=== PATIENT | male | born 1970 | race African-American/Black ===

== ENCOUNTER 2020-05-30 08:59 | Outpatient (CLI) | payer OTHER, SELFPAY ==
--- NOTE | 2020-05-30 09:14 | ECG_ITS ---
Measurements Intervals [place] Rate: 58 P: 45 OH: 117 QRS: 26 QRSD: 82 T: 194 QT: 431 QTc: 424 Interpretive Statements SINUS BRADYCARDIA WITH SHORT OH INTERVAL LEFT VENTRICULAR HYPERTROPHY AND ST-T CHANGE T WAVE ABNORMALITY IN ANTEROLATERAL LEADS- CONSIDER ISCHEMIA BASELINE ARTIFACT- I, II, III, AVR, AVL ABNORMAL ECG Electronically Signed On 05-30-2020 15:02:39 CHARTING CLERK by Zaire West D.O.
== END 2020-05-30 09:00 | disposition home or self-care (01) ==
LOC: ANHIMG 09:09 → ANHCARD 09:14
PROVIDERS: PCP Anesthesiology; Visit Provider Anesthesiology
DX: I10 Essential (primary) hypertension (principal); R94.31 Abnormal electrocardiogram [ECG] [EKG]
CPT/HCPCS: 93005

== ENCOUNTER → 2020-06-03 02:45 | Outpatient (CLI) | payer OTHER, SELFPAY ==
[2020-06-03 17:20] LABS: SARS-CoV-2 RNA PCR Negative
== END ==
PROVIDERS: PCP Anesthesiology; Visit Provider Otolaryngology
DX: Z01.812 Encounter for preprocedural laboratory examination (principal); Z20.822 Contact with and (suspected) exposure to COVID-19
CPT/HCPCS: C9803; U0003; U0005

== ENCOUNTER 2020-06-05 00:45 | Day surgery (SDC) | payer OTHER, SELFPAY ==
[2020-05-25 17:27] VITALS: BMI 35.0
--- NOTE | 2020-05-28 15:40 | PC.NURSE ---
Patient stated, there is no changes since last interview was done.
--- NOTE | 2020-06-02 10:41 | PM.IMHP ---
H&P: HPI History of Present Illness Date/Time: 06/02/20 10:41 Chief Complaint: Retained myringotomy tubes, eustachian tube dysfunction Narrative: Brian Chamberlain is a 49 year old male with a long history of eustachian tube dysfunction who has done very well with ear tubes. He presents for tube removal and replacement. Reports no new symptoms or changes in his medical history. Review of Systems Constitutional: Constitutional: Denies fatigue, Denies fever(s) and Denies lethargy Eyes: Eyes: Denies blurry vision and Denies change in vision ENT: Reports as per HPI Cardiovascular: Cardiovascular: Denies chest pain Respiratory: Respiratory: Denies cough Endocrine: Endocrine: Denies fatigue Hematologic/Lymphatic: Hematologic/Lymphatic: Denies easy bleeding, Denies easy bruising and Denies lymphadenopathy Allergic/Immunologic: Allergic/Immunologic: Denies seasonal rhinorrhea [facility] Social History Social History (Updated 12/10/19 @ 09:15 by Lolly Herrera MA) Smoking status: Never smoker Alcohol intake: never Substance use: never Gender identity (if verbalized by the patient): Male Spiritual care concerns: No Meds Home Medications and Allergies Home Medications Medication Instructions Recorded Confirmed Type azelastine 137 mcg (0.1 %) nasal 1 spray INTRANASAL Q12H #30 ml 04/21/20 05/25/20 Rx spray aerosol olmesartan 20 mg PO DAILY 05/25/20 05/25/20 History rosuvastatin 20 mg PO DAILY 05/25/20 05/25/20 History Allergies Allergy/AdvReac Type Severity Reaction Status Date / Time No Known Allergies Allergy Unverified 04/21/20 16:22 Exam Const: General: cooperative, healthy appearing, comfortable, well developed and alert HENMT: Head: normal to inspection, normocephalic and atraumatic Ears: hearing grossly normal bilaterally, external ears normal, TM's abnormal bilaterally ( Tubes present bilaterally) and EAC's normal General nose exam: Normal external nose present, Normal nares present, No nasal polyps present, Normal nasal mucous membranes and turbinates present and Normal septum present Face and sinus: normal facial exam Mouth: Yes Normal oral and palatal mucosa present, Yes lip normal, Yes tongue normal, Yes oropharynx normal and Yes moist mucous membranes Teeth and gingiva: dentition normal and gingiva normal Throat: posterior oropharynx normal, tonsils normal and uvula midline Eyes: General: appearance normal, both eyes and all related structures Periorbital: periorbital findings normal Eyelids: eyelids normal Conjunctivae: conjunctivae normal Sclera: sclerae normal Neck: Neck: normal visual inspection, full ROM and no lymphadenopathy Thyroid: thyroid normal Lymphatic: no lymphadenopathy noted Resp: Effort & Inspection: normal respiratory effort and able to speak in complete sentences Cardio: Jugular venous distension: no JVD Neuro: Cranial nerves: Yes CN's II-XII intact bilaterally Assessment and Plan Assessment and plan (1) ETD (eustachian tube dysfunction): Code(s): H69.80 - Other specified disorders of Eustachian tube, unspecified ear Status: Acute Assessment and Plan: plan is for the OR for bilateral tube removal and replacement. The risks were discussed including damage to facial nerves loss of facial function damage to hearing loss if hearing and the need for further procedures. The patient voiced understanding and agreed. The risk of cholesteatoma was discussed as well. (2) Retained bilateral myringotomy tubes: Code(s): Z96.22 - Myringotomy tube(s) status Status: Acute
--- NOTE | 2020-06-05 07:00 | WPDHPUPDATE1 ---
History and Physical Update Update Date/Time: 06/05/20 07:00 History and Physical has been reviewed, including an updated exam of the patient. There are NO changes in the patient's condition. Risks, benefits, and alternatives have been discussed and questions answered. Patient agrees to proceed with procedure.
--- NOTE | 2020-06-05 12:28 | WPDANESEPPF ---
Anes - Initial Pre Proc Eval Procedure: Operation Date: 06/05/20 15:30 Proposed Procedures p Bilateral Tube Removal And Bilateral Tube Replacements - Judd Henson MD Date/Time: 06/05/20 12:28 Surgeon: Judd Henson MD Pre Op Diagnosis: Chronic Otitis Media Patient Data Age: 49 Gender: M Height: 1.8 m Weight: 114 kg Allergies Allergy/AdvReac Type Severity Reaction Status Date / Time No Known Allergies Allergy Unverified 04/21/20 16:22 Home Medications Medication Instructions Recorded Confirmed Type azelastine 137 mcg (0.1 %) nasal 1 spray INTRANASAL Q12H #30 ml 04/21/20 05/25/20 Rx spray aerosol olmesartan 20 mg PO DAILY 05/25/20 05/25/20 History rosuvastatin 20 mg PO DAILY 05/25/20 05/25/20 History Patient hx anesthesia problems: none Family hx anesthesia problems: none PMFSH Past Medical History Medical History (Updated 06/05/20 @ 12:29 by Gamaliel Salinas MD) Chronic GERD HTN (hypertension) Hyperlipidemia Obesity Social History Social History (Updated 12/10/19 @ 09:15 by Lolly Herrera MA) Smoking status: Never smoker Alcohol intake: never Substance use: never Living arrangements: alone Gender identity (if verbalized by the patient): Male Sexual Orientation (if Verbalized by the Patient): Straight or Heterosexual Spiritual care concerns: No Anes - Eval Final PreProcedure Day of Procedure 06/05/20 12:28 Patient weight: obese Heart: regular rate and rhythm Lungs: clear to auscultation and normal air movement Airway: Mallampati scale class II Neurological: alert and oriented Last oral intake: >/= 8 hours ASA classification: III Emergent: no Anesthetic plan: proceed Anesthesia type and monitoring: general GIVS and LMA Informed Consent: The patient's anesthetic plan and its attendant risks and benefits were discussed with the patient/family/POA. Questions were solicited and answers provided to the satisfaction of the patient/family/POA.
[2020-06-05 13:21] VITALS: BP 148/100; PULSE 66; RESP 18; TEMP 36.1; O2SAT 100
[2020-06-05] MEDS: LACTATED RINGERS 1,000 ML 30 ML IV CONT (13:35)
[2020-06-05] MEDS: CIPROFLOXACIN HCL 0.3% OP SOLN 2.5 ML BTL 4 DROP EACH EAR (15:07)
[2020-06-05 15:30] VITALS: BP 137/91; PULSE 100; RESP 16; O2SAT 95
--- NOTE | 2020-06-05 15:40 | P.OP_ITS ---
Procedure Note - Detailed Date of procedure: 06/05/20 Pre-op diagnosis: Chronic Otitis Media Retained myringotomy tubes Post-op diagnosis: same Procedure performed: Bilateral marialuisa microscopy Bilateral T-tube removal and replacement Description of procedure: The patient was correctly identified and consent was verified in the preoperative holding area. The patient was then brought to the operating room and a time-out was performed. General anesthesia was induced and an LMA was secured the patient's airway. The marialuisa microscope was brought to the field and the right EAC was visualized following placement of the speculum. Cerumen was removed with a curette. The T-tube was removed in approximately 15- 20% perforation was noted anteriorly. The perforation edges were rimmed and a T-tube was placed. Similar procedure was performed on the left side. The only significant difference in findings was that the perforation was the size of the tube on the left side. Care the patient was turned back over to anesthesiology and I performed all portions of this procedure. Anesthesia: GLMA Surgeon: Judd Henson MD Complications: No immediate complications Condition: stable Disposition: PACU Findings: Left-sided small perforations size of tube right-sided large perforation 15%
[2020-06-05 16:00] VITALS: BP 134/92; PULSE 78; RESP 18
[2020-06-05 16:30] VITALS: BP 153/87; PULSE 67; RESP 16
[2020-06-05] MEDS: oxyCODONE HCL (*CRX) 5 MG TAB IR PO (16:37)
== END 2020-06-05 16:44 | disposition home or self-care (01) ==
PROVIDERS: PCP Anesthesiology; Visit Provider Otolaryngology
PROC: (CPT 69436; principal; 2020-06-05 15:30)
DX: H66.93 Otitis media, unspecified, bilateral (principal); I10 Essential (primary) hypertension; E78.5 Hyperlipidemia, unspecified; K21.9 Gastro-esophageal reflux disease without esophagitis; E66.9 Obesity, unspecified; Z68.35 Body mass index [BMI] 35.0-35.9, adult
CPT/HCPCS: 69436; A9270; C9803; J2250; J3010; J7120; U0003; U0005

== ENCOUNTER 2021-02-16 01:05 | Day surgery (SDC) | payer OTHER, SELFPAY ==
[2021-02-09 09:29] VITALS: BMI 34.0
--- NOTE | 2021-02-09 09:40 | PC.NURSE ---
Report to the Outpatient Waiting Room, entrance under the green pavilion located off [facility], at time 0600 on date 02/16/21. OR Time: 0730. - You and your visitor will be asked a series of questions to screen for COVID 19 for your protection. - A mask is required within the hospital. - Only one visitor is allowed at this time. Patient visitors will be guided where to wait when not with patient. Preoperative COVID Testing Requirements: No COVID Test needed if: (proof is required; if not received patient will have Rapid Test prior to entry) - Patient has received COVID Vaccine at least 14 days prior to procedure date or - Patient has positive COVID test result within last 90 days of surgery date. COVID Test needed if above criteria is not met If not COVID vaccinated a COVID test must be conducted within 72 hours of surgery and patient is asked to isolate self from time of testing until procedure. You will go to the [facility] for your COVID testing. The [facility] is located at the corner of [address] [facility]. You will only be called if COVID results are positive and your surgeon may reschedule your elective surgery date. Patients may have clear liquids (water, carbonated beverages, clear teas, apple juice) until 3 hours prior to surgery with a maximum of 20 ounces. - No food from midnight until time of surgery - Infants may have breast milk until 4 hours before surgery, infant formula 6 hours prior to surgery. - Children will be allowed to drink immediately following surgery. If applicable, please bring a bottle or sippy cup to assist with drinking. Juice, water, soda, and popsicles are readily available. For infants on formula, please bring formula the day of surgery. Pacifiers are allowed. Take the following medications with a SIP of water the morning of surgery: N/A Medications to discontinue per physician: N/A Date to take last dose: N/A Please no make-up, nail setswana, hairspray, perfume, deodorant, or body powder the day of surgery. No jewelry (including any body piercings) or valuables the day of surgery, leave them at home. Please take a shower or bath the night before, or the morning of, surgery with an antibacterial soap. Wear comfortable, loose fitting clothing. Children are encouraged to wear pajamas. - Jewelry must be removed prior to entering the operating room. Rings and piercings that are not removed may be cut off. - The hospital will not accept responsibility for valuables. - Please leave all valuables, including medications, at home the day of surgery. If you are going home after surgery, a licensed shuttle truck driver must drive you home. - NO public transportation without another adult. - We recommend that an adult stay with you for 24 hours following discharge. - We also recommend that you do not drive, make important decision, drink alcoholic beverages, or take any drugs that were not prescribed by your health care provider for at least 24 hours after your discharge time. For Pediatric surgeries, we recommend two adults accompany the child home (only one inside the building at this time). Follow any additional instructions given to you from your surgeon. Telephone instructions given to KJ DUMONT and asked if any additional questions and then verbalized understanding. Patient advised to call surgeon office or pre surgery nurse liaison [phone] if any additional questions.
--- NOTE | 2021-02-15 07:48 | PM.IMHP ---
H&P: HPI History of Present Illness Date/Time: 02/15/21 07:48 Chief Complaint: Bilateral eustachian tube dysfunction, left retained myringotomy tube, right TM perforation Narrative: patient presents for planned surgical procedure left T-tube replacement. No changes in symptoms no change in medical history. Review of Systems Constitutional: Constitutional: Denies fatigue, Denies fever(s) and Denies lethargy Eyes: Eyes: Denies blurry vision and Denies change in vision ENT: Reports as per HPI Cardiovascular: Cardiovascular: Denies chest pain Respiratory: Respiratory: Denies cough Endocrine: Endocrine: Denies fatigue Hematologic/Lymphatic: Hematologic/Lymphatic: Denies easy bleeding, Denies easy bruising and Denies lymphadenopathy Allergic/Immunologic: Allergic/Immunologic: Denies seasonal rhinorrhea [facility] Past Medical History Medical History Chronic GERD HTN (hypertension) Hyperlipidemia Obesity Family History Family History Father Hypertension Heart disease Cancer Social History Social History Smoking status: Never smoker Alcohol intake: never Substance use: never Substance use type: does not use Living arrangements: alone Gender identity (if verbalized by the patient): Male Sexual Orientation (if Verbalized by the Patient): Straight or Heterosexual Spiritual care concerns: No Meds Home Medications and Allergies Home Medications Medication Instructions Recorded Confirmed Type famotidine 20 mg PO HS 02/09/21 02/09/21 History Allergies Allergy/AdvReac Type Severity Reaction Status Date / Time No Known Allergies Allergy Verified 02/09/21 09:28 Exam Const: General: cooperative, healthy appearing, comfortable, well developed and alert HENMT: Head: normal to inspection, normocephalic and atraumatic Ears: hearing grossly normal bilaterally, external ears normal, TM's abnormal bilaterally ( Left retained T-tube right perforation) and EAC's normal General nose exam: Normal external nose present, Normal nares present, No nasal polyps present, Normal nasal mucous membranes and turbinates present and Normal septum present Face and sinus: normal facial exam Mouth: Yes Normal oral and palatal mucosa present, Yes lip normal, Yes tongue normal, Yes oropharynx normal and Yes moist mucous membranes Teeth and gingiva: dentition normal and gingiva normal Throat: posterior oropharynx normal, tonsils normal and uvula midline Eyes: General: appearance normal, both eyes and all related structures Periorbital: periorbital findings normal Eyelids: eyelids normal Conjunctivae: conjunctivae normal Sclera: sclerae normal Neck: Neck: normal visual inspection, full ROM and no lymphadenopathy Thyroid: thyroid normal Lymphatic: no lymphadenopathy noted Resp: Effort & Inspection: normal respiratory effort and able to speak in complete sentences Cardio: Jugular venous distension: no JVD Neuro: Cranial nerves: Yes CN's II-XII intact bilaterally Assessment and Plan Assessment and plan (1) Unspecified perforation of tympanic membrane, right ear: Code(s): H72.91 - Unspecified perforation of tympanic membrane, right ear Status: Acute Assessment and Plan: plan is for the operating room for left T-tube removal and replacement. Total operative time 5 minutes. Risks were discussed including facial nerve damage facial paralysis deafness change in hearing need for further procedures. Patient voiced understanding of all of the aforementioned risks and agreed. (2) Retained myringotomy tube in left ear: Code(s): Z96.22 - Myringotomy tube(s) status Status: Acute
[2021-02-16] VITALS (7 sets, daily range): BP systolic 118–146; BP diastolic 77–95; PULSE 60–74; RESP 16–20; TEMP 36.1–36.2; O2SAT 96–100
[2021-02-16] MEDS: LACTATED RINGERS 1,000 ML 30 ML IV CONT (06:50)
--- NOTE | 2021-02-16 07:06 | WPDHPUPDATE1 ---
History and Physical Update Update Date/Time: 02/16/21 07:06 History and Physical has been reviewed, including an updated exam of the patient. There are NO changes in the patient's condition. Risks, benefits, and alternatives have been discussed and questions answered. Patient agrees to proceed with procedure.
--- NOTE | 2021-02-16 07:10 | WPDANESEPPF ---
Anes - Initial Pre Proc Eval Procedure: Operation Date: 02/16/21 07:30 Proposed Procedures p Left Myringotomy with T-Tube Insertion - Judd Henson MD Date/Time: 02/16/21 07:10 Surgeon: Judd Henson MD Pre Op Diagnosis: Left Eustahian Tube Dysfunction Patient Data Age: 50 Gender: M Height: 1.83 m Weight: 114 kg Allergies Allergy/AdvReac Type Severity Reaction Status Date / Time No Known Allergies Allergy Verified 02/16/21 06:21 Home Medications Medication Instructions Recorded Confirmed Type famotidine 20 mg PO HS 02/09/21 02/16/21 History Patient hx anesthesia problems: none Family hx anesthesia problems: none Results Review: All pre-operative results and documents have been reviewed as part of the pre-operative evaluation. [facility] Past Medical History Medical History Chronic GERD HTN (hypertension) Hyperlipidemia Obesity Family History Family History Father Hypertension Heart disease Cancer Social History Social History Smoking status: Never smoker Alcohol intake: never Substance use: never Substance use type: does not use Living arrangements: alone Gender identity (if verbalized by the patient): Male Sexual Orientation (if Verbalized by the Patient): Straight or Heterosexual Spiritual care concerns: No Anes - Eval Final PreProcedure Day of Procedure 02/16/21 07:10 Patient weight: obese Heart: regular rate and rhythm Lungs: clear to auscultation Airway: Mallampati scale class II Neurological: alert and oriented Last oral intake: >/= 8 hours ASA classification: III Emergent: no Anesthetic plan: proceed Anesthesia type and monitoring: general GIVS and standard monitoring Results Review: All pre-operative results and documents have been reviewed as part of the pre-operative evaluation. Informed Consent: The patient's anesthetic plan and its attendant risks and benefits were discussed with the patient/family/POA. Questions were solicited and answers provided to the satisfaction of the patient/family/POA.
[2021-02-16] MEDS: FAMOTIDINE 20 MG/2 ML VIAL IV PUSH (07:15)
[2021-02-16] MEDS: CIPROFLOXACIN HCL 0.3% OP SOLN 2.5 ML BTL 4 DROP EACH EAR (07:30)
--- NOTE | 2021-02-16 07:51 | P.OP_ITS ---
Procedure Note - Detailed Date of Procedure 02/16/21 Pre-op Diagnosis Left Eustahian Tube Dysfunction, left retained myringotomy tube Post-op Diagnosis same Procedure Performed Left myringotomy tube removal with new tube insertion Surgeon Judd Henson MD [employer] None Anesthesia general (LMA) Indications See above Findings Left tube in place blocked removed new tube placed no complications T-tube Description of Procedure Patient correctly identified consent verified in preop. Patient brought to OR. Time-out performed. Patient prepped and draped anesthesia induced LMA secured. Second time-out performed. Patient prepped and draped after induction. Haigler microscope brought in the operative field left EAC viewed speculum placed curette used to remove cerumen T-Tube in place blocked. T-tube removed with alligator forceps. New tube inserted. No bleeding. Blood loss 0 cc. Care patient turned back to Anesthesia. I performed all dictated portions of the procedure. No complications. Implants T-tube modified Estimated Blood Loss 0 Drains No Packing No Pathology none sent Complications No immediate complications Condition stable Disposition PACU
[2021-02-16] MEDS: oxyCODONE HCL (*CRX) 5 MG TAB IR PO (08:18)
== END 2021-02-16 08:55 | disposition home or self-care (01) ==
PROVIDERS: Visit Provider Otolaryngology
PROC: (CPT 69436; principal; 2021-02-16 07:30)
DX: T85.698A Other mechanical complication of other specified internal prosthetic devices, implants and grafts, initial encounter (principal); H69.92 Unspecified Eustachian tube disorder, left ear; Y83.8 Other surgical procedures as the cause of abnormal reaction of the patient, or of later complication, without mention of misadventure at the time of the procedure; K21.9 Gastro-esophageal reflux disease without esophagitis; E66.9 Obesity, unspecified; Z68.34 Body mass index [BMI] 34.0-34.9, adult
CPT/HCPCS: 69436; A9270; J1100; J2405; J2704; J7120

== ENCOUNTER 2021-12-10 01:05 | Day surgery (SDC) | payer OTHER, SELFPAY ==
[2021-12-06 13:55] VITALS: BMI 33.3
--- NOTE | 2021-12-06 13:59 | PC.NURSE ---
Report to the Outpatient Waiting Room, entrance under the green pavilion located off [facility], at time _0730_ on date _[id number]_. OR Time: _0930_. Time changes happen often and if your time is changed the preop area will call you the afternoon before. - You and your visitor will be asked to self-screen and do not enter if you have any COVID symptoms. - Only one visitor and NO children visitors are allowed at this time. - The patient visitor is requested to leave or wait in car when not with patient due to restrictions. - A mask is required within the hospital. Patients may have clear liquids (water, carbonated beverages, clear teas, apple juice) until 3 hours prior to surgery with a maximum of 20 ounces. - No food from midnight until time of surgery Take the following medications with a SIP of water the morning of surgery: None Medications to discontinue per physician ____None Date to take last dose Please no make-up, nail slovenian, hairspray, perfume, deodorant, or body powder the day of surgery. No jewelry (including any body piercings) or valuables the day of surgery, leave them at home. Please take a shower or bath the night before, or the morning of, surgery with an antibacterial soap. Wear comfortable, loose fitting clothing. - Jewelry must be removed prior to entering the operating room. Rings and piercings that are not removed may be cut off. - The hospital will not accept responsibility for valuables. - Please leave all valuables, including medications, at home the day of surgery. If you are going home after surgery, a licensed city route driver must drive you home. - NO public transportation without another adult. - We recommend that an adult stay with you for 24 hours following discharge. - We also recommend that you do not drive, make important decision, drink alcoholic beverages, or take any drugs that were not prescribed by your health care provider for at least 24 hours after your discharge time. Follow any additional instructions given to you from your surgeon. If you or anyone in your household have experienced Covid symptoms in the past week, please notify your surgeon or the nurse liaison at the phone number below for possible testing. Telephone instructions given to __Patient___and asked if any additional questions and then verbalized understanding. Patient advised to call surgeon office or pre surgery nurse liaison [phone] if any additional questions.
--- NOTE | 2021-12-09 17:13 | P.HP_ITS ---
H&P: HPI History of Present Illness Date/Time: 12/09/21 17:13 Chief Complaint: Infected retained myringotomy tubes Narrative: planned surgical procedure Review of Systems Review of Systems: All systems reviewed & are unremarkable except as noted in HPI and below [facility] Past Medical History Medical History Chronic GERD HTN (hypertension) Hyperlipidemia Obesity Family History Family History Father Hypertension Heart disease Cancer Social History Social History Smoking status: Never smoker Alcohol intake: never Substance use: never Substance use type: does not use Living arrangements: alone Gender identity (if verbalized by the patient): Male Sexual Orientation (if Verbalized by the Patient): Straight or Heterosexual Spiritual care concerns: No Meds Home Medications and Allergies Home Medications Medication Instructions Recorded Confirmed Type latanoprost 0.005 % eye drops 1 drp EACH EYE HS 12/06/21 12/06/21 History Allergies Allergy/AdvReac Type Severity Reaction Status Date / Time No Known Allergies Allergy Verified 12/06/21 13:52 Exam Narrative: normal ENT exam Assessment and Plan Assessment and plan (1) Retained bilateral myringotomy tubes: Code(s): Z96.22 - Myringotomy tube(s) status Status: Acute Assessment and Plan: plan operating room bilateral tube removal and replacement. Risks were discussed including persistent widening of the tympanic membrane perforations need for further procedures failure to resolve symptoms. Patient voiced understanding and agreed.
[2021-12-10] VITALS (7 sets, daily range): BP systolic 122–146; BP diastolic 86–96; PULSE 59–94; RESP 12–20; TEMP 35.9–36.2; O2SAT 94–100
--- NOTE | 2021-12-10 07:13 | WPDHPUPDATE1 ---
History and Physical Update Update Date/Time: 12/10/21 07:13 History and Physical has been reviewed, including an updated exam of the patient. There are NO changes in the patient's condition. Risks, benefits, and alternatives have been discussed and questions answered. Patient agrees to proceed with procedure.
[2021-12-10] MEDS: LACTATED RINGERS 1,000 ML 30 ML IV CONT ×2 (08:20→09:55)
--- NOTE | 2021-12-10 08:35 | P.PNAN_ITS ---
Anes - Initial Pre Proc Eval Procedure: Operation Date: 12/10/21 09:30 Proposed Procedures p Removal of Bilateral Ear Tubes, Bilateral Replacement of Ear Tubes - Judd Henson MD Date/Time: 12/10/21 08:35 Surgeon: Judd Henson MD Pre Op Diagnosis: bilateral chronic otitis media Patient Data Age: 51 Gender: M Height: 1.83 m Weight: 117.8 kg Last Vital Signs Temp 35.9 C L 12/10/21 08:14 Pulse 68 12/10/21 08:14 Resp 20 12/10/21 08:14 BP 145/92 H 12/10/21 08:14 Pulse Ox 99 12/10/21 08:14 O2 Del Method Room Air 12/10/21 08:14 Allergies Allergy/AdvReac Type Severity Reaction Status Date / Time No Known Allergies Allergy Verified 12/10/21 07:53 Home Medications Medication Instructions Recorded Confirmed Type latanoprost 0.005 % eye drops 1 drp EACH EYE HS 12/06/21 12/10/21 History atorvastatin 20 mg tablet 20 mg PO HS 12/10/21 12/10/21 History pantoprazole 40 mg tablet,delayed 40 mg PO BID 12/10/21 12/10/21 History release prednisone 10 mg tablet 10 mg PO DAILY PRN Allergy Symptoms 12/10/21 12/10/21 History Patient hx anesthesia problems: none Family hx anesthesia problems: none Results Review: All pre-operative results and documents have been reviewed as part of the pre- operative evaluation. [facility] Past Medical History Medical History Chronic GERD HTN (hypertension) Hyperlipidemia Obesity Surgical History Surgical History (Updated 12/10/21 @ 08:35 by Kendall Aaron MD) Hx of Achilles tendon repair Family History Family History Father Hypertension Heart disease Cancer Social History Social History Smoking status: Never smoker Alcohol intake: never Substance use: never Substance use type: does not use Living arrangements: alone Gender identity (if verbalized by the patient): Male Sexual Orientation (if Verbalized by the Patient): Straight or Heterosexual Spiritual care concerns: No Anes - Eval Final PreProcedure Day of Procedure 12/10/21 08:35 Patient weight: obese Heart: regular rate and rhythm Lungs: clear to auscultation Airway: Mallampati scale class II Neurological: alert and oriented Last oral intake: >/= 8 hours ASA classification: III Emergent: no Anesthetic plan: proceed Anesthesia type and monitoring: general LMA and standard monitoring Results Review: All pre-operative results and documents have been reviewed as part of the pre- operative evaluation. Informed Consent: The patient's anesthetic plan and its attendant risks and benefits were discussed with the patient/family/POA. Questions were solicited and answers provided to the satisfaction of the patient/family/POA.
[2021-12-10] MEDS: CIPROFLOXACIN HCL 0.3% OP SOLN 2.5 ML BTL 4 DROP EACH EAR (08:57)
[2021-12-10] MEDS: fentaNYL CITRATE INJ (*CRX) 100 MCG/2 ML VIAL 25 MCG IV PUSH ×2 (09:29→09:40)
--- NOTE | 2021-12-10 09:41 | W.PM.PROC2 ---
Procedure Note - Detailed Date of Procedure 12/10/21 Pre-op Diagnosis bilateral chronic otitis media, retained myringotomy tubes Post-op Diagnosis Same Procedure Performed Right-sided T-tube insertion left-sided removal of T-tube with T-tube replacement Surgeon Judd Henson MD Anesthesia General (LMA) Indications See above Findings I right-sided look good small perforation healed nicely tube placed through this left-sided granulation tissue tube removed tube replaced no purulence no polyps anywhere patient tolerated the procedure well. Description of Procedure Patient identified consent verified. Patient brought operating room. Time-out performed. General anesthesia induced LMA secured. [place] microscope brought in field. Second time-out performed. Right side examined very cool looking very small perforation much smaller than the initial perforation noted at last tube replacement. Tube was absent. T-Tube trimmed placed through the small perforation no bleeding drops placed. Left side examined T-Tube there small amount of granulation tissue T-Tube removed new T-tube trimmed placed 3 appropriate sized perforation which was already present. Drops placed. Patient tolerated the procedure well no complications. Total blood loss centrally 0. I performed all dictated portions no complications patient given over to Anesthesiology and taken to PACU.
== END 2021-12-10 10:50 | disposition home or self-care (01) ==
PROVIDERS: Visit Provider Otolaryngology
PROC: (CPT 69436; principal; 2021-12-10 09:30)
DX: H66.93 Otitis media, unspecified, bilateral (principal); T85.698A Other mechanical complication of other specified internal prosthetic devices, implants and grafts, initial encounter; Y83.8 Other surgical procedures as the cause of abnormal reaction of the patient, or of later complication, without mention of misadventure at the time of the procedure; I10 Essential (primary) hypertension; E78.5 Hyperlipidemia, unspecified; K21.9 Gastro-esophageal reflux disease without esophagitis; E66.9 Obesity, unspecified; Z68.35 Body mass index [BMI] 35.0-35.9, adult
CPT/HCPCS: 69436; J1100; J2250; J2405; J2704; J3010; J7120